=== PATIENT | female | born 1935 | race Caucasian/White ===

== ENCOUNTER → 2017-01-23 | Outpatient (CLI) | payer MEDICARE, OTHER ==
[~2017-01-23] MED LIST: ATENOLOL25 MG PO; CITRACAL + D 311 TAB PO; CITRUCEL PACKET1 PKT PO; CLOBETASOL0.05% TP; COLACE 100100 MG/CAP PO; COLACE100 MG PO; DOXYCYCLINE 50M50 MG PO; DUO-KAPS1 CAP PO; DYAZIDE 25 MG-31 CAP PO; ELAVIL10 MG PO; ELAVIL25 MG PO; FLEXERIL 1010 MG/TAB PO; FLEXERIL10 MG PO; FOLIC ACID PO; FOSAMAX 70MG TA70 MG PO; FOSAMAX70 MG PO; HYDROXYCHLOROQ200 MG PO; HYDROXYCHLOROQUINE PO; HYOMAX-SR0.375 MG PO; LEVBID0.375 MG PO; LISINOPRIL10 MG PO; LYRICA150 MG PO; METHOTREXA2.5 MG/TAB PO; METHOTREXATE2.5 M1 PO; METHOTREXATE2.5 MG PO; MULTIPLE VITAMI1 TAB PO; MVI; NASONEX SPRAY; NASONEX0.05 MG/AC NS; POTASSIUM CH2 MEQ/ML PO; PREMARIN .3MG0.3 MG VG; PREMARIN 0.60.625 M1 PO; PREMARIN VAG42.5 GM VG; PRILOSEC 20MG20 MG PO; SENORMIN50 MG PO; SYNTHROID0.05 MG/TA PO; SYNTHROID0.075 MG PO; TRIAMTERENE/HCT1 TAB PO; ULTRAM 50MG TAB50 MG PO; ULTRAM50 MG PO; VITAMIN D1000 IU PO; [UNRECOGNIZED DRUG - OTHER]; folic acid PO
== END ==
LOC: MC.RAD 08:27
DX: Z12.31 Encounter for screening mammogram for malignant neoplasm of breast (principal)

== ENCOUNTER 2017-10-07 11:00 | Outpatient (RCR) | payer MEDICARE, OTHER | END 2017-10-14 12:40 | disposition home or self-care (01) | LOC: MKS.ESL.PT 11:00 | DX: M79.671 Pain in right foot (principal) | CPT/HCPCS: G8978-GP; G8979-GP; G8980-GP ==

== ENCOUNTER → 2018-02-18 | Outpatient (CLI) | payer MEDICARE, OTHER | LOC: MC.RAD 10:34 | DX: Z12.31 Encounter for screening mammogram for malignant neoplasm of breast (principal) ==

== ENCOUNTER 2018-06-11 12:52 | Outpatient (RCR) | payer MEDICARE, OTHER | END 2018-09-09 | disposition home or self-care (01) | LOC: MKS.ESL.PT | DX: R42 Dizziness and giddiness (principal) ==

== ENCOUNTER → 2019-02-27 | Outpatient (CLI) | payer MEDICARE, OTHER | LOC: MC.RAD 11:22 | DX: Z12.31 Encounter for screening mammogram for malignant neoplasm of breast (principal) ==

== ENCOUNTER → 2020-02-29 | Outpatient (CLI) | payer MEDICARE, OTHER | LOC: MC.RAD 11:30 | DX: Z12.31 Encounter for screening mammogram for malignant neoplasm of breast (principal) ==

== ENCOUNTER 2020-11-23 07:24 | Day surgery (SDC) | payer MEDICARE, OTHER ==
[2020-11-23] VITALS (340 sets, daily range): BP systolic 105–149; BP diastolic 55–90; PULSE 62–69; TEMP 98.1–98.7; O2SAT 76–100
[~2020-11-23] VITALS: Ht 162.6 cm; Wt 88.0 kg
[2020-11-23 08:26] LABS: HEMATOCRIT 38.1 % (37.0-47.0); HEMOGLOBIN 12.3 g/dl (12.5-16.0); MEAN CELL VOLUME 89 fl (80.0-100.0); MEAN CORPUSCULAR HEMOGLOBIN 29 pg (27.0-31.0); MEAN CORPUSCULAR HGB CONC 32 g/dl (33.0-37.0); MEAN PLATELET VOLUME 9.4 fl (7.4-10.4); PLATELET COUNT 230 K/mm3 (130-400); REDCELL DISTRIBUTION WIDTH-CV 15.5 % (11.5-14.5)
[2020-11-23 08:34] LABS: PROTHROMBIN TIME 10.9 SECONDS (9.7-12.8)
[2020-11-23 08:35] LABS: ALBUMIN 4.4 gm/dL (3.5-5.0); BILIRUBIN,TOTAL 0.6 mg/dL (0.0-1.0); CHOLESTEROL RISK RATIO 1.8; CREATININE, serum 0.89 (0.52-1.25); MAGNESIUM 2.1 mg/dL (1.6-2.3); POTASSIUM 4.2 mmol/L (3.4-5.0); TOTAL PROTEIN 7.1 gm/dL (6.4-8.2)
[2020-11-23 08:36] LABS: PARTIAL THROMBOPLASTIN TIME 32.4 SECONDS (26.0-37.0)
[2020-11-23] MEDS ORDERED: SYNTHROID0.088 MG/T PO (08:45)
[2020-11-23] MEDS ORDERED: DIOVAN 160MG160 MG PO (08:46)
[2020-11-23] MEDS ORDERED: PROCARDIA XL 3030 MG PO (08:47)
[2020-11-23] MEDS ORDERED: ASPIRIN E.C. 8181 MG PO (08:47)
[2020-11-23] MEDS ORDERED: LYRICA 150MG C150 MG PO (08:48)
[2020-11-23] MEDS ORDERED: CITRACAL + D CA1 TAB (08:49)
[2020-11-23] MEDS ORDERED: VITAMIN D31000 IU PO (08:50)
[2020-11-23] MEDS ORDERED: OMEGA-31 SGL PO (08:51)
[2020-11-23] MEDS ORDERED: LASIX 20MG TABL20 MG PO (08:52)
[2020-11-23] MEDS ORDERED: PLAVIX 75MG TAB75 MG PO (08:52)
[2020-11-23] MEDS ORDERED: MULTIVITAMIN PO (08:52)
[2020-11-23] MEDS ORDERED: PRAVACHOL 40MG40 MG PO (08:53)
[2020-11-23] MEDS ORDERED: K-DUR 10 MEQ T10 MEQ PO (08:53)
[2020-11-23] MEDS ORDERED: RESTASIS MULTI5.5 ML OP (08:54)
[2020-11-23] MEDS ORDERED: ULTRAM ER100 MG (08:55)
[2020-11-23] MEDS ORDERED: HUMIRA PEN40 MG/0.4 SQ (08:55)
--- NOTE | 2020-11-23 10:45 | NUR ---
pt returned to eu 12 via bed from [employer], awake and alert. in room, call light in reach. radial band on with support, 10cc of air now reported in band. pt sips on water, Dr Luciano in later, EKG done post
--- NOTE | 2020-11-23 11:00 | NUR ---
pt has angiomax infusing from analytical lab analyst to iv site at 30.8cc/hr till bag is empty, also 1/2 ns at 100cc/hr
--- NOTE | 2020-11-23 11:30 | NUR ---
lunch ordered for pt, took snack, states has h/a, thinks from not eating.
--- NOTE | 2020-11-23 12:30 | NUR ---
pt sits up in bed eats lunch, no c/o
--- NOTE | 2020-11-23 13:00 | NUR ---
pt up to b/r to void with stand by assist, back to bed, c/o headache at a 4, tylenol 650mg po given at this time, 1cc of air released from band to start
--- NOTE | 2020-11-23 13:30 | NUR ---
1 CC OF AIR RELEASED FROM BAND, TOTAL OF 4CC OF 1344 WITH NO SIGNS OF BLEEDING
--- NOTE | 2020-11-23 14:15 | NUR ---
TR BAND RELEASED FULLY WITH NO SIGNS OF BLEEDING OR SWELLING. BANDAID ON SITE WITH COBAN SUPPORT, PT UP TO B/R TO VOID, SITS ON SIDE OF BED, NO C/O H/A STATES IS "OK"
--- NOTE | 2020-11-23 15:50 | NUR ---
PT UP TO B/R, FLUIDS D'CD. REPORT TO THOMAS SMITH IN ICU, TRANSFERRED TO #5 VIA W/C WITH , SITE SOFT, NO SWELLING TO WRIST, DOES HAVE BRUISE ABOVE SITE THAT WAS THERE UPON ARRIVAL TO ROOM, NO CHANGES
--- NOTE | 2020-11-23 16:32 | NUR ---
Patient awake and alert. Denies any pain at this time. Reports some shortness of air but this is per her usual. Right radial cath site soft with no hematoma formation. Slightly tender to touch. VS stable. Call light left within reach; will continue to monitor.
[2020-11-24] VITALS (186 sets, daily range): BP systolic 100–120; BP diastolic 50–82; PULSE 65–69; TEMP 98–98.7; O2SAT 83–100
[2020-11-24 06:39] LABS: BASO % 0.6 % (0.0-2.0); EOS # 0.1 (0.0-0.7); EOS % 2.9 % (0-4.0); GRAN # 2.7 (1.4-6.5); GRAN % 55.6 % (42.2-75.2); HEMATOCRIT 37.9 % (37.0-47.0); LYMPH # 1.3 (1.2-3.4); LYMPH % 26.9 % (20.0-51.0); MEAN CELL VOLUME 91 fl (80.0-100.0); MEAN CORPUSCULAR HEMOGLOBIN 29 pg (27.0-31.0); MEAN CORPUSCULAR HGB CONC 32 g/dl (33.0-37.0); MEAN PLATELET VOLUME 9.9 fl (7.4-10.4); MONO # 0.7 (0.1-0.6); MONO % 13.8 % (1.7-9.3); PLATELET COUNT 189 K/mm3 (130-400); RED BLOOD COUNT 4.18 M/mm3 (4.10-5.30); REDCELL DISTRIBUTION WIDTH-CV 15.4 % (11.5-14.5)
[2020-11-24 06:41] LABS: CALCIUM 9.8 mg/dL (8.4-10.2); CREATININE, serum 0.87 (0.52-1.25); POTASSIUM 4.3 mmol/L (3.4-5.0)
== END 2020-11-24 11:00 | disposition home or self-care (01) ==
LOC: COL.CAR 07:24 → ICU 15:56 → COL.CAR 11-24 11:00
PROVIDERS: Internal Medicine Cardiovascular Disease
DX: I25.110 Atherosclerotic heart disease of native coronary artery with unstable angina pectoris (principal); I73.9 Peripheral vascular disease, unspecified; K21.9 Gastro-esophageal reflux disease without esophagitis; R06.02 Shortness of breath; R94.39 Abnormal result of other cardiovascular function study; I10 Essential (primary) hypertension; I65.29 Occlusion and stenosis of unspecified carotid artery; E03.9 Hypothyroidism, unspecified; K58.9 Irritable bowel syndrome, unspecified; M79.7 Fibromyalgia; M19.90 Unspecified osteoarthritis, unspecified site; M81.0 Age-related osteoporosis without current pathological fracture; M06.9 Rheumatoid arthritis, unspecified; G47.33 Obstructive sleep apnea (adult) (pediatric); Z90.710 Acquired absence of both cervix and uterus; Z79.82 Long term (current) use of aspirin; Z79.02 Long term (current) use of antithrombotics/antiplatelets; Z79.899 Other long term (current) drug therapy; Z79.890 Hormone replacement therapy; Z80.9 Family history of malignant neoplasm, unspecified; Z83.3 Family history of diabetes mellitus; Z82.3 Family history of stroke
CPT/HCPCS: OP; C1725; C1769; C1874; C1887; C1894; C9600; J0583; J1644; J2250; J3010; Q9967

== ENCOUNTER → 2021-02-15 | Outpatient (CLI) | payer MEDICARE, OTHER ==
[~2021-02-15] MED LIST changes: +ASPIRIN E.C. 8181 MG PO; +CITRACAL + D CA1 TAB; +DIOVAN 160MG160 MG PO; +HUMIRA PEN40 MG/0.4 SQ; +K-DUR 10 MEQ T10 MEQ PO; +LASIX 20MG TABL20 MG PO; +LYRICA 150MG C150 MG PO; +MULTIVITAMIN PO; +OMEGA-31 SGL PO; +PLAVIX 75MG TAB75 MG PO; +PRAVACHOL 40MG40 MG PO; +PROCARDIA XL 3030 MG PO; +RESTASIS MULTI5.5 ML OP; +SYNTHROID0.088 MG/T PO; +ULTRAM ER100 MG; +VITAMIN D31000 IU PO
== END ==
LOC: COL.RAD 07:40
DX: N26.1 Atrophy of kidney (terminal) (principal)

== ENCOUNTER 2021-03-06 14:13 | Outpatient (RCR) | payer MEDICARE, OTHER | END 2021-03-07 | disposition home or self-care (01) | LOC: COL.CR | DX: Z48.812 Encounter for surgical aftercare following surgery on the circulatory system (principal); Z95.5 Presence of coronary angioplasty implant and graft ==

== ENCOUNTER 2021-03-17 16:39 | Outpatient (RCR) | payer MEDICARE, OTHER | END 2021-03-20 08:38 | disposition home or self-care (01) | LOC: COL.CR 16:39 | DX: Z48.812 Encounter for surgical aftercare following surgery on the circulatory system (principal); Z95.5 Presence of coronary angioplasty implant and graft ==

== ENCOUNTER 2021-04-11 12:45 | Outpatient (RCR) | payer MEDICARE, OTHER | END 2021-05-05 | disposition home or self-care (01) | LOC: MKS.ESL.PT | DX: M25.512 Pain in left shoulder (principal) | CPT/HCPCS: G0283-GP ==

== ENCOUNTER 2021-06-01 16:15 | Outpatient (RCR) | payer MEDICARE, OTHER | END 2021-06-05 | disposition home or self-care (01) | LOC: MKS.ESL.PT | DX: M25.521 Pain in right elbow (principal) ==

== ENCOUNTER 2021-07-18 15:15 | Outpatient (RCR) | payer MEDICARE, OTHER | END 2021-08-03 | disposition home or self-care (01) | LOC: MKS.ESL.OT | DX: G56.21 Lesion of ulnar nerve, right upper limb (principal) ==

== ENCOUNTER → 2021-09-01 | Outpatient (CLI) | payer MEDICARE, OTHER | LOC: COL.PUL 10:35 | DX: R06.02 Shortness of breath (principal); M06.09 Rheumatoid arthritis without rheumatoid factor, multiple sites ==

== ENCOUNTER 2022-03-13 07:30 | Day surgery (SDC) | payer MEDICARE, OTHER ==
[2008-04-20 09:13] VITALS: BP 126/74
[~2022-03-13] VITALS: Ht 160 cm; Wt 80.7 kg
[~2022-03-13 07:30] MED LIST changes: -HYDROXYCHLOROQ200 MG PO; +PLAQUENIL 200M200 MG PO; -SENORMIN50 MG PO; +TENORMIN 5050 MG/TAB PO
[2022-03-13 07:56] VITALS: BP 157/68; PULSE 61; TEMP 97.1
[2022-03-13] MEDS ORDERED: PRILOTC (08:06)
[2022-03-13] MEDS ORDERED: SYNTHROID0.075 MG/T PO (08:06)
[2022-03-13] MEDS ORDERED: PRAVACHOL 40MG40 MG PO (08:10)
[2022-03-13] MEDS ORDERED: RESTASIS MULTI5.5 ML OP (08:11)
[2022-03-13] MEDS ORDERED: KEVZARA200 MG/1.1 (08:11)
[2022-03-13] MEDS ORDERED: CRANBERRY FRUI425 MG PO (08:14)
[2022-03-13] MEDS ORDERED: [UNRECOGNIZED DRUG - OTHER] PO (08:19)
[2022-03-13 09:25] VITALS: BP 140/68; PULSE 64; TEMP 96.9
[2022-03-13 09:40] VITALS: BP 128/69; PULSE 64
[2022-03-13 09:55] VITALS: BP 147/67; PULSE 62
--- NOTE | 2022-03-13 10:15 | NUR ---
0925 RETURNS TO ROOM 2 PER CART. AWAKE, ALERT. AMBULATES TO RECLINER WITH STANDBY ASSIST. FEET ELEVATED. VIATL SIGNS OBTAINED. DENIES NAUSEA, ABD PAIN OR DYSPHAGIA. IN ROOM. 0942 TOLERATES PO JUICE AND MUFFIN WITHOUT NAUSEA. SWALLOWS WITHOUT DIFFICULTY. 0950 DR. GARCIA HERE TO SEE PATIENT. 0958 DISCHARGE INSTRUCTIONS REVIEWED. PATIENT AND VERBALIZE UNDERSTANDING. COPY OF INSTRUCTIONS PROVIDED IN DISCHARGE FOLDER. 1004 DRESSES SELF. 1015 DISCHARGED PER WHEELCHAIR TO VEHICLE BEING DRIVEN BY
== END 2022-03-13 10:15 | disposition home or self-care (01) ==
LOC: SDCO 07:30
DX: K29.30 Chronic superficial gastritis without bleeding (principal); K25.9 Gastric ulcer, unspecified as acute or chronic, without hemorrhage or perforation; K21.9 Gastro-esophageal reflux disease without esophagitis; K58.9 Irritable bowel syndrome, unspecified; E66.01 Morbid (severe) obesity due to excess calories; Z98.84 Bariatric surgery status
CPT/HCPCS: J2704; J7120

== ENCOUNTER → 2022-06-29 | Outpatient (CLI) | payer MEDICARE, OTHER ==
[~2022-06-29] MED LIST changes: +CRANBERRY FRUI425 MG PO; +KEVZARA200 MG/1.1; +PRILOTC; +SYNTHROID0.075 MG/T PO; +[UNRECOGNIZED DRUG - OTHER] PO
== END ==
LOC: COL.RAD 09:42
DX: M50.123 Cervical disc disorder at C6-C7 level with radiculopathy (principal); R53.2 Functional quadriplegia

== ENCOUNTER 2022-07-19 09:28 | Outpatient (RCR) | payer MEDICARE, OTHER | END 2022-08-03 | disposition home or self-care (01) | LOC: MKS.ESL.PT | DX: M19.011 Primary osteoarthritis, right shoulder (principal) ==

== ENCOUNTER 2022-08-10 16:27 | Emergency (ER) | payer MEDICARE, OTHER ==
[~2022-08-10] VITALS: Ht 160 cm; Wt 80.5 kg
[2022-08-10 16:43] VITALS: TEMP 97.5
[2022-08-10 17:40] LABS: BASO % 0.4 % (0.0-2.0); EOS # 0.1 K/mm3 (0.0-0.7); EOS % 2.1 % (0.0-4.0); GRAN % 63.2 % (42.2-75.2); HEMATOCRIT 40.4 % (37.0-47.0); HEMOGLOBIN 13.7 g/dl (12.5-16.0); LYMPH % 21.1 % (20.0-51.0); MEAN CELL VOLUME 91 fl (80.0-100.0); MEAN CORPUSCULAR HEMOGLOBIN 31 pg (27-31); MEAN CORPUSCULAR HGB CONC 34 g/dl (33.0-37.0); MEAN PLATELET VOLUME 9.9 fl (7.4-10.4); MONO # 0.6 K/mm3 (0.1-0.6); MONO % 12.6 % (1.7-9.3); PLATELET COUNT 176 K/mm3 (130-400); RED BLOOD COUNT 4.45 M/mm3 (4.10-5.30); REDCELL DISTRIBUTION WIDTH-CV 14.6 % (11.5-14.5)
[2022-08-10 17:58] LABS: ALANINE AMINOTRANSFERASE 50 U/L (0-55); ALBUMIN 4.5 gm/dL (3.4-4.8); ALKALINE PHOSPHATASE 33 U/L (40-150); ANION GAP 10 mmol/L (7-16); AST,SGOT 33 U/L (5-34); BILIRUBIN,TOTAL 0.7 mg/dL (0.2-1.2); BLOOD UREA NITROGEN 16 mg/dL (10-20); CALCIUM 10.1 mg/dL (8.4-10.2); CARBON DIOXIDE 24 mmol/L (23-31); CHLORIDE 106 mmol/L (98-107); CREATININE, serum 0.73 mg/dL (0.57-1.11); GLUCOSE 99 mg/dL (70-99); POTASSIUM 4.3 mmol/L (3.5-4.5); SODIUM 140 mmol/L (136-145); TOTAL PROTEIN 6.8 gm/dL (6.2-8.1)
[2022-08-10 18:05] LABS: TROPONIN-I < 0.010 ng/mL (0.00-0.033)
[2022-08-10 18:40] VITALS: BP 167/85; PULSE 77
== END 2022-08-10 18:45 | disposition home or self-care (01) ==
LOC: COL.ER 16:27
PROVIDERS: Physician Assistant
DX: S20.219A Contusion of unspecified front wall of thorax, initial encounter (principal); I25.10 Atherosclerotic heart disease of native coronary artery without angina pectoris; Z79.82 Long term (current) use of aspirin; Z95.5 Presence of coronary angioplasty implant and graft; W01.190A Fall on same level from slipping, tripping and stumbling with subsequent striking against furniture, initial encounter; Y92.009 Unspecified place in unspecified non-institutional (private) residence as the place of occurrence of the external cause
CPT/HCPCS: J1885; J3010; Q9967

== ENCOUNTER → 2023-01-03 | Outpatient (RCR) | payer MEDICARE, OTHER | END | disposition home or self-care (01) | LOC: MKS.ESL.PT | DX: M19.011 Primary osteoarthritis, right shoulder (principal); Z96.611 Presence of right artificial shoulder joint ==

== ENCOUNTER 2023-01-31 10:00 | Outpatient (RCR) | payer MEDICARE, OTHER | END 2023-02-02 | disposition home or self-care (01) | LOC: MKS.ESL.PT | DX: M19.011 Primary osteoarthritis, right shoulder (principal); Z96.611 Presence of right artificial shoulder joint ==

== ENCOUNTER 2023-04-09 14:30 | Outpatient (RCR) | payer MEDICARE, OTHER ==
[~2023-04-09 14:30] MED LIST changes: -DIOVAN 160MG160 MG PO; +DIOVAN 80MG80 MG PO; -KEVZARA200 MG/1.1; +KEVZARA200 MG/1.1 INJ
[2023-04-15] MEDS ORDERED: LOVAZA1 GM PO (16:06)
[2023-04-15] MEDS ORDERED: PREDNISONE 5MG5 MG PO (16:06)
[2023-04-15] MEDS ORDERED: THERA-D 20002000 IU PO (16:08)
[2023-04-17] MEDS ORDERED: ASPI325T6 PO (08:19)
[2023-04-17] MEDS ORDERED: TYLENOL 500MG500 MG PO (08:20)
[2023-04-17] MEDS ORDERED: PROTONIX 40MG T40 MG PO (08:23)
[2023-04-17] MEDS ORDERED: ROXICODONE 55 MG/TAB PO (08:26)
[2023-05-10] MEDS ORDERED: COLACE 100100 MG/CAP PO (09:16)
[2023-05-10] MEDS ORDERED: PRILOSEC 20MG20 MG PO (09:17)
[2023-05-10] MEDS ORDERED: URITRAX47 GM PO (09:23)
[2023-05-10] MEDS ORDERED: CEPHALEXIN500 M1 PO (09:25)
[2023-05-10] MEDS ORDERED: OMEGA-3 FISH1000 MG PO (09:27)
[2023-05-10] MEDS ORDERED: RESTASIS MULTI5.5 ML OP (09:28)
[2023-05-10] MEDS ORDERED: KEVZARA200 MG/1.1 (09:29)
[2023-05-13] MEDS ORDERED: ROCEPHIN 2GM VIAL21 IJ (11:36)
== END 2023-05-05 | disposition home or self-care (01) ==
LOC: MKS.ESL.PT
DX: M19.011 Primary osteoarthritis, right shoulder (principal); Z96.611 Presence of right artificial shoulder joint

== ENCOUNTER 2023-04-12 14:15 | Inpatient (IN) | payer MEDICARE, OTHER ==
[~2023-04-12] VITALS: Ht 160 cm; Wt 81.8 kg
[2023-04-12 15:05] LABS: BASO % 0.5 % (0.0-2.0); EOS # 0.2 K/mm3 (0.0-0.7); GRAN # 2.3 K/mm3 (1.4-6.5); GRAN % 60.2 % (42.2-75.2); HEMATOCRIT 37.8 % (37.0-47.0); HEMOGLOBIN 12.6 g/dl (12.5-16.0); LYMPH # 0.9 K/mm3 (1.2-3.4); LYMPH % 23.1 % (20.0-51.0); MEAN CELL VOLUME 95 fl (80.0-100.0); MEAN CORPUSCULAR HEMOGLOBIN 32 pg (27-31); MEAN CORPUSCULAR HGB CONC 33 g/dl (33.0-37.0); MEAN PLATELET VOLUME 10.5 fl (7.4-10.4); MONO # 0.4 K/mm3 (0.1-0.6); MONO % 11.7 % (1.7-9.3); PLATELET COUNT 159 K/mm3 (130-400)
[2023-04-12 15:44] LABS: ALBUMIN 4.3 gm/dL (3.4-4.8); BILIRUBIN,TOTAL 0.8 mg/dL (0.2-1.2); CALCIUM 9.9 mg/dL (8.4-10.2); CREATININE, serum 0.82 mg/dL (0.57-1.11); POTASSIUM 3.9 mmol/L (3.5-4.5); TOTAL PROTEIN 6.4 gm/dL (6.2-8.1)
[2023-04-12 17:00] VITALS: BP_SYST 133
--- NOTE | 2023-04-12 17:20 | NUR ---
pt admitted to room from ER. transferred pt to bed without difficulty. pt has traction on from EMS. gómez to dd w clear yellow urine output. vss. INT to left ac. med rec complete. pt on 2L nasal cannula. call light in reach. no needs at this time.
[2023-04-12 18:55] LABS: INR 1.1 (0.8-3.0); PROTHROMBIN TIME 12.2 SECONDS (9.7-12.8)
[2023-04-12 19:00] VITALS: BP_SYST 145
--- NOTE | 2023-04-12 19:00 | NUR ---
BEDSIDE SHIFT REPORT AND SHIFT ASSESSMENT COMPLETED. SEE MAR FOR MS GIVEN BY SARA SMITH. AT BEDSIDE VERY SUPPORTIVE. TRACTION FROM ER SET UP TO LLE. LT FOOT COOL TO TOUCH. RT FOOT IS WARM. POSTIVE SENSATION. CALL LIGHT IN REACH. BED ALARM SET.
[2023-04-12 19:05] VITALS: BP 143/78; PULSE 71; TEMP 97.6
[2023-04-12 20:04] VITALS: BP 145/63; PULSE 70; TEMP 97.7
[2023-04-12 21:19] LABS: COLLECTION METHOD CLEAN CATCH
[2023-04-12 21:55] LABS: PH 5.5 (5.0-8.5); URINE APPEARANCE Clear (CLEAR/HAZY); URINE BLOOD Negative (NEGATIVE); URINE COLOR Yellow (YELLOW); URINE GLUCOSE Negative (NEGATIVE); URINE KETONE Negative (NEGATIVE); URINE NITRATE Negative (NEGATIVE); URINE PROTEIN(semi-quant) Negative (NEGATIVE); URINE UROBILINOGEN 0.2 E.U/dL (0.2-1.0)
[2023-04-12 22:06] LABS: SQUAMOUS EPITHELIAL 0-2 /hpf (0-10); URINE RBC None Seen /hpf (0-2)
[2023-04-12 22:07] LABS: MUCOUS Present (NOT PRESENT); URINE BACTERIA Moderate /hpf (NONE SEEN)
[2023-04-12 23:25] VITALS: BP 145/59; PULSE 74; TEMP 97.6
[2023-04-13] VITALS (16 sets, daily range): BP systolic 92–145; BP diastolic 43–88; PULSE 52–86; TEMP 97–98.9
--- NOTE | 2023-04-13 07:00 | NUR ---
PT RESTING IN BED WITH 10/10 PAIN IN LEFT LOWER EXTREMITY AT THIS TIME. BILATERAL EXTREMITIES WARM TO TOUCH, PULSES +2, NO EDEMA, AND PT ABLE TO MOVE TOES. PT A/O X4 WITH TRACTION TO L LEG. PT REPAINS NPO AT THIS TIME. WILL CONTINUE TO MONITOR.
[2023-04-13 07:06] LABS: BASO % 0.5 % (0.0-2.0); EOS # 0.2 K/mm3 (0.0-0.7); EOS % 4.5 % (0.0-4.0); GRAN # 2.3 K/mm3 (1.4-6.5); GRAN % 54.3 % (42.2-75.2); LYMPH # 1.2 K/mm3 (1.2-3.4); LYMPH % 28.4 % (20.0-51.0); MEAN CELL VOLUME 95 fl (80.0-100.0); MEAN CORPUSCULAR HGB CONC 33 g/dl (33.0-37.0); MEAN PLATELET VOLUME 10.4 fl (7.4-10.4); MONO # 0.5 K/mm3 (0.1-0.6); MONO % 12.1 % (1.7-9.3); PLATELET COUNT 143 K/mm3 (130-400); RED BLOOD COUNT 3.09 M/mm3 (4.10-5.30); REDCELL DISTRIBUTION WIDTH-CV 14.2 % (11.5-14.5)
[2023-04-13 07:11] LABS: HEMATOCRIT 29.3 % (37.0-47.0); HEMOGLOBIN 9.6 g/dl (12.5-16.0); MEAN CORPUSCULAR HEMOGLOBIN 31 pg (27-31)
--- NOTE | 2023-04-13 07:14 | NUR ---
DELTA CHECK CALLED BY LAB. HGB DROP FROM 12.6 TO 9.6. SURGERY NOTIFIED. NO ORDERS AT THIS TIME. PT TAKEN OFF FLOOR FOR SURGERY AT THIS TIME.
[2023-04-13 07:38] LABS: ALBUMIN 3.5 gm/dL (3.4-4.8); BILIRUBIN,TOTAL 0.5 mg/dL (0.2-1.2); CALCIUM 8.4 mg/dL (8.4-10.2); CREATININE, serum 0.65 mg/dL (0.57-1.11); MAGNESIUM 1.6 mg/dL (1.6-2.6); POTASSIUM 3.7 mmol/L (3.5-4.5); TOTAL PROTEIN 5.2 gm/dL (6.2-8.1)
--- NOTE | 2023-04-13 10:26 | NUR ---
Data: Patient's Aidan accepted Chiropractor Sole Practitioner visit offered during Chiropractor Sole Practitioner rounds. Patient is at surgery. Aidan is waiting. 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 Assessment: Aidan is waiting for 's surgery to be completed. He is concerned, but also hopeful. He brought things (i.e. crossword puzzled and books) to help pass the time. Plan of Care: Life/career review with Aidan. Prayer for surgery and for recovery.
--- NOTE | 2023-04-13 10:45 | NUR ---
PT UP TO ROOM THIS TIME. REPORT RECEIVED FROM PACU NURSE. PT A/O X4 WITH PAIN 0/10. BLE WARM TO TOUCH, PULSES +2, NO EDEMA, CAP REFILL LESS THAN 2. PT TOLERATING ICE CHIPS WELL AND REMAINS ON 2L O2. FAMILY AT BEDSIDE. WILL CONTINUE TO MONITOR.
--- NOTE | 2023-04-13 19:54 | NUR ---
PT RESTING IN BED. LT HIP APIN STILL ELEVATED TO LEVEL9. SEE MAR FOR ADONIS GIVEN. AT BEDSIDE. VERY SUPPORTIVE. CALL LIGHT IN REACH. BED ALARM SET.
[2023-04-14] VITALS (18 sets, daily range): BP systolic 81–148; BP diastolic 44–85; PULSE 66–90; TEMP 97.4–98.2
[2023-04-14 07:17] LABS: MEAN CELL VOLUME 93 fl (80.0-100.0); MEAN CORPUSCULAR HGB CONC 34 g/dl (33.0-37.0); MEAN PLATELET VOLUME 10.3 fl (7.4-10.4); PLATELET COUNT 128 K/mm3 (130-400); RED BLOOD COUNT 2.47 M/mm3 (4.10-5.30); REDCELL DISTRIBUTION WIDTH-CV 14.3 % (11.5-14.5)
[2023-04-14 07:21] LABS: HEMATOCRIT 22.9 % (37.0-47.0); HEMOGLOBIN 7.8 g/dl (12.5-16.0); MEAN CORPUSCULAR HEMOGLOBIN 32 pg (27-31)
[2023-04-14 07:42] LABS: CALCIUM 7.7 mg/dL (8.4-10.2); CREATININE, serum 0.65 mg/dL (0.57-1.11); MAGNESIUM 1.9 mg/dL (1.6-2.6)
--- NOTE | 2023-04-14 10:20 | NUR ---
PT RESTING IN BED WITH PAIN 6/10 AT THIS TIME. THERPAY ASSISTED PT TO CHAIR WITH WALKER, IMPAIRED GAIT. BLE +1, PULSES +2. DRESSINGS CLEAN, DRY, AND INTACT. WILL CONTINUE TO MONITOR.
--- NOTE | 2023-04-14 11:15 | NUR ---
DRESSING TO UPPER LEFT LEG CHANGED AT THIS TIME. MODERATE AMOUNT OF PINK DRAINAGE OF BANDAGE. 4X4 AND TEGADERM APPLIED.
--- NOTE | 2023-04-14 13:26 | NUR ---
SW met with patient to complete intake, patient reports that she lives in [place] with spouse Aidan Velázquez [phone]. Patient reports that she is independent with ADL's; does utilize DME's: CPAP, cane and bathroom rails are installed to support patient. Patient shared that her PCP is Dr Samaniego and pharmacy of choice is [facility] and also uses [facility] for senior living medications. Patient does have DPOA on file. Patient is excepting to discharge back to her residence once care completed, pending any further medical recommendations.
--- NOTE | 2023-04-14 19:50 | NUR ---
ASSISTED PT FROM CHAIR TO BED WITH 2 ASSIST/GAIT BELT/WALKER. DOES WELL. HAS IVF TO LAC INFUSING WITHOUT PROBLEM. HAS DRSG'S TO LT HIP WITH OLD DRAINAGE NOTED. PEARSON TO BSD WITH YELLOW URINE. REPORTS DECREASED APPETITE, DRINKING OK. IS ALERT AND ORIENTED X4.
--- NOTE | 2023-04-14 20:30 | NUR ---
MEDICATED WITH HS MEDS INCLUDING OXYCODONE 5MG PO FOR PAIN.
[2023-04-14 20:36] LABS: HEMATOCRIT 26.5 % (37.0-47.0); HEMOGLOBIN 9.4 g/dl (12.5-16.0)
[2023-04-15] VITALS (12 sets, daily range): BP systolic 115–148; BP diastolic 58–82; PULSE 73–91; TEMP 98–98.7
--- NOTE | 2023-04-15 05:45 | NUR ---
PT LT HIP DRSG'S WITH SOAKED WITH BLOODY DRAINAGE, NEW 4X4'S AND TEGADERMS APPLIED. REPOSITIONED TO RT SIDE, ICE PACK ON.
[2023-04-15 06:37] LABS: BASO % 0.4 % (0.0-2.0); EOS # 0.3 K/mm3 (0.0-0.7); EOS % 6.1 % (0.0-4.0); GRAN # 3.2 K/mm3 (1.4-6.5); GRAN % 63.7 % (42.2-75.2); LYMPH # 0.7 K/mm3 (1.2-3.4); LYMPH % 13.2 % (20.0-51.0); MEAN CELL VOLUME 93 fl (80.0-100.0); MEAN CORPUSCULAR HGB CONC 34 g/dl (33.0-37.0); MEAN PLATELET VOLUME 10.2 fl (7.4-10.4); MONO # 0.8 K/mm3 (0.1-0.6); PLATELET COUNT 125 K/mm3 (130-400); RED BLOOD COUNT 2.67 M/mm3 (4.10-5.30); REDCELL DISTRIBUTION WIDTH-CV 14.6 % (11.5-14.5)
[2023-04-15 06:41] LABS: HEMATOCRIT 24.7 % (37.0-47.0); HEMOGLOBIN 8.3 g/dl (12.5-16.0); MEAN CORPUSCULAR HEMOGLOBIN 31 pg (27-31)
[2023-04-15 06:51] LABS: CALCIUM 8.2 mg/dL (8.4-10.2); CREATININE, serum 0.65 mg/dL (0.57-1.11); MAGNESIUM 1.7 mg/dL (1.6-2.6); POTASSIUM 4.2 mmol/L (3.5-4.5)
--- NOTE | 2023-04-15 09:14 | NUR ---
PT RESTING IN BED WITH PAIN 2/10 AT THIS TIME. EDEMA IN LEFT LEG +1, CAP REFIL LESS THAN 2, FULL SENSATION. PT AMBULATES TO CHAIR WITH 1 ASSIST AND WALKER. DRESSING TO LEFT UPPER LEG SOILED WITH PINK DRAINAGE, DRESSING CHANGED. PEARSON REMOVED AT THIS TIME PER ORDERS. WILL CONTINUE TO MONITOR.
--- NOTE | 2023-04-15 09:20 | NUR ---
Initial visit; Patient thanked Bed Manager for looking in on her and offering Gods blessings and keeping her in Bed Manager's prayers.
--- NOTE | 2023-04-15 11:46 | NUR ---
Lotus Notes Administrator met with Patient and to discuss discharge planning. Lotus Notes Administrator briefed recommendation of SNF for discharge. Patient states that she lives at [facility] and wants to discharge to [facility]. PEDRO provided Medicaregov list of servicing providers for aditional options. PEDRO contacted Tejal with [facility] who reports potential bed availability tomorrow and requests referral. PEDRO welsh assisted this SW and sent referral to [facility].
[2023-04-15 13:57] LABS: HEMOGLOBIN 9.1 g/dl (12.5-16.0)
--- NOTE | 2023-04-15 14:57 | NUR ---
[facility] was contacted by Tejal Moncada who reports to accept Patient for admission tomorrow, 04-16-23.
[2023-04-15] MEDS ORDERED: PREDNISONE 5MG5 MG PO (16:06)
[2023-04-15] MEDS ORDERED: LOVAZA1 GM PO (16:06)
[2023-04-15] MEDS ORDERED: THERA-D 20002000 IU PO (16:08)
--- NOTE | 2023-04-15 19:00 | NUR ---
PT IN BED, SPOUSE AT BEDSIDE. DENIES PAIN AT THIS TIME. HAS DRSG TO LT HIP WITH MICROFOAM TAPE SECURING. DRSG'S TO LT KNEE D/I.
--- NOTE | 2023-04-15 20:30 | NUR ---
PT UP IN CHAIR AT BEDSIDE. IS ABLE TO TRANSFER WITH ONE ASSIST AND WALKER, GAIT STEADY. HAS DRY DRSG'S TO LT HIP/KNEE. HAS ABRASION/SCRATCHES TO LT BUTTOCK. HAS BRUISING TO GROIN. PT IS ALERT AND ORIENTED X4. DENIES NEED FOR OXYCODONE TONIGHT, TAKES SCHEDULED HS MEDS WITHOUT PROBLEM. INT TO LFA. WEARING 1L/NC OF OXYGEN, TYPICALLY WEAR CPAP AT HOME.
[2023-04-16] VITALS (17 sets, daily range): BP systolic 92–151; BP diastolic 44–81; PULSE 76–91; TEMP 97.8–98.9
--- NOTE | 2023-04-16 05:00 | NUR ---
PT UP TO BATHROOM, HAS BM, BACK TO BED. SCHEDULED AM MEDS GIVEN.
[2023-04-16 07:58] LABS: MEAN CELL VOLUME 93 fl (80.0-100.0); MEAN CORPUSCULAR HGB CONC 34 g/dl (33.0-37.0); MEAN PLATELET VOLUME 10.4 fl (7.4-10.4); PLATELET COUNT 134 K/mm3 (130-400); RED BLOOD COUNT 2.45 M/mm3 (4.10-5.30); REDCELL DISTRIBUTION WIDTH-CV 14.4 % (11.5-14.5)
[2023-04-16 08:17] LABS: HEMATOCRIT 22.7 % (37.0-47.0); HEMOGLOBIN 7.7 g/dl (12.5-16.0); MEAN CORPUSCULAR HEMOGLOBIN 31 pg (27-31)
[2023-04-16 08:19] LABS: CALCIUM 8.5 mg/dL (8.4-10.2); CREATININE, serum 0.64 mg/dL (0.57-1.11)
--- NOTE | 2023-04-16 08:54 | NUR ---
PT UP TO RECLINER FOR BREAKFAST. AT BEDSIDE. PT TO DISCHARGE LATER TODAY TO [facility] POSSIB[facility]. PT IS A/O X4, TOOK AM MEDS WHOLE, DRESSINGS TO LEFT LEG CDI WITH GAUZE AND TEGADERM OVER INCISIONS.
--- NOTE | 2023-04-16 09:04 | NUR ---
Quality Assurance Qa Lab Technician collaborated with Treatment Team to assess Patient for discharge readiness. Patient is assessed to need continued treatment and is anticipated to discharge tomorrow if stable after today's transfusion. Patient is accepted for [facility]. SW sent updates to Adarsh with [facility] and briefed need for continued stay.
[2023-04-16 11:10] LABS: ANISOCYTOSIS 1+; BAND 9 % (0-10); EOSINOPHIL 7 % (0-4); LYMPHOCYTE 15 % (20.0-51.0); NEUTROPHILS 61 % (42.0-75.2); NUCLEATED RED BLOOD CELL 1 (0-6); PLATELET ESTIMATE NORMAL (NORMAL)
[2023-04-16 16:27] LABS: HEMATOCRIT 27.6 % (37.0-47.0); HEMOGLOBIN 9.4 g/dl (12.5-16.0)
--- NOTE | 2023-04-16 19:00 | NUR ---
sitting up in chair eating supper, bedside shift report received from SARAH Robertson
--- NOTE | 2023-04-16 20:20 | NUR ---
assisted back to bed by CARE TECH, c/o pain to left leg 11/12 and medicated with roxicodone 5mg and scheduled tylenol, full assessment completed see interventions for further info, has bruising to left upper thigh and hip area, and swelling to left lower extremity, has kennedi wrap dressing to left kne and occlusive dressing to left hip, SCDs placed bilaterally, is ready for sleep, denies further needs
--- NOTE | 2023-04-16 21:27 | NUR ---
appears toa be sleeping, in bed with eyes closed, resp quiet and easy
--- NOTE | 2023-04-16 23:36 | NUR ---
continues to appear to sleep
[2023-04-17 00:14] VITALS: BP 143/65; PULSE 79; TEMP 97.6
--- NOTE | 2023-04-17 00:15 | NUR ---
assisted up to bathroom with 1 assist, ambulates with slow steady gait, then back to bed
[2023-04-17 01:00] VITALS: BP_SYST 143
--- NOTE | 2023-04-17 02:02 | NUR ---
appears to be sleeping, lights off, eyes closed, resp quiet and easy
--- NOTE | 2023-04-17 03:44 | NUR ---
appears to be sleeping, resp quiet and easy
--- NOTE | 2023-04-17 04:00 | NUR ---
awake for vital signs, medicated with scheduled tylenol, states pain is good at this time, denies needs
[2023-04-17 04:05] VITALS: BP 129/79; PULSE 71; TEMP 97.5
[2023-04-17 04:12] VITALS: BP_SYST 129
[2023-04-17 06:43] LABS: HEMATOCRIT 25.5 % (37.0-47.0); HEMOGLOBIN 8.5 g/dl (12.5-16.0)
[2023-04-17 06:51] LABS: CALCIUM 8.6 mg/dL (8.4-10.2); CREATININE, serum 0.66 mg/dL (0.57-1.11); POTASSIUM 3.9 mmol/L (3.5-4.5)
--- NOTE | 2023-04-17 07:01 | NUR ---
bedside shift report given to SARAH Sanchez
[2023-04-17 07:20] VITALS: BP 111/71; PULSE 65; TEMP 97.9
[2023-04-17] MEDS ORDERED: ASPI325T6 PO (08:19)
[2023-04-17] MEDS ORDERED: TYLENOL 500MG500 MG PO (08:20)
[2023-04-17] MEDS ORDERED: PROTONIX 40MG T40 MG PO (08:23)
[2023-04-17] MEDS ORDERED: ROXICODONE 55 MG/TAB PO (08:26)
--- NOTE | 2023-04-17 08:51 | NUR ---
pt a&ox4 resting in bed, at bedside. meds are given and assessment is complete. vss and tele in place. scds and teds to ble. left leg incisions are cdi. pt denies pain. INT discontinued for pt to shower before discharging. fall precautions in place. pt denies needs at this time. call light in reach.
[2023-04-17 09:22] VITALS: BP_SYST 111
--- NOTE | 2023-04-17 11:14 | NUR ---
report called to nurse at [facility], all questions answered.
--- NOTE | 2023-04-17 12:22 | NUR ---
Clay Molder faxed clinical updates and discharge orders to Kennedy at [facility], who confirmed they can accept today. Transport time set for 1100. SW met with patient and her spouse to provide update and discharge time. SW presented IM form to patient who then verbalized understanding and provided signature. SW placed form in chart, then provided copy to patient. Discharge Plan: [facility]
== END 2023-04-17 11:14 | DRG 482 ==
LOC: COL.ER 14:15 → SURG 15:46
PROVIDERS: Emergency Medicine; Orthopaedic Surgery; Physician Assistant; ADMIT Hospitalist
PROC: 2W5RXYZ Removal of Other Device on Left Lower Leg (ICD-10-PCS; 2023-04-13)
PROC: BW1CYZZ Fluoroscopy of Lower Extremity using Other Contrast (ICD-10-PCS; 2023-04-13)
PROC: 0QS906Z Reposition Left Femoral Shaft with Intramedullary Internal Fixation Device, Open Approach (ICD-10-PCS; principal; 2023-04-13 08:00)
PROC: 30233N1 Transfusion of Nonautologous Red Blood Cells into Peripheral Vein, Percutaneous Approach (ICD-10-PCS; 2023-04-16)
DX: S72.302A Unspecified fracture of shaft of left femur, initial encounter for closed fracture (principal); M81.0 Age-related osteoporosis without current pathological fracture; I08.1 Rheumatic disorders of both mitral and tricuspid valves; D72.819 Decreased white blood cell count, unspecified; M06.9 Rheumatoid arthritis, unspecified; E83.42 Hypomagnesemia; I73.9 Peripheral vascular disease, unspecified; I10 Essential (primary) hypertension; E03.9 Hypothyroidism, unspecified; D64.9 Anemia, unspecified; I25.10 Atherosclerotic heart disease of native coronary artery without angina pectoris; G47.33 Obstructive sleep apnea (adult) (pediatric); M19.90 Unspecified osteoarthritis, unspecified site; E78.5 Hyperlipidemia, unspecified; K21.9 Gastro-esophageal reflux disease without esophagitis; G62.9 Polyneuropathy, unspecified; W18.30XA Fall on same level, unspecified, initial encounter; Y92.009 Unspecified place in unspecified non-institutional (private) residence as the place of occurrence of the external cause; Z79.82 Long term (current) use of aspirin; Z79.891 Long term (current) use of opiate analgesic; Z79.890 Hormone replacement therapy; Z95.5 Presence of coronary angioplasty implant and graft; Z95.820 Peripheral vascular angioplasty status with implants and grafts; Z90.710 Acquired absence of both cervix and uterus; Z88.2 Allergy status to sulfonamides; Z88.5 Allergy status to narcotic agent; Z88.8 Allergy status to other drugs, medicaments and biological substances
CPT/HCPCS: A4314; A9284; C1713; J0665; J0690; J1170; J2250; J2270; J2371; J2405; J2704; J3010; J3475; J7030; J7120; J7512; P9016

== ENCOUNTER 2023-05-31 14:07 | Emergency (ER) | payer MEDICARE, OTHER ==
[~2023-05-31] VITALS: Ht 160 cm; Wt 80.0 kg
[~2023-05-31 14:07] MED LIST changes: +ASPI325T6 PO; +CEPHALEXIN500 M1 PO; +KEVZARA200 MG/1.1; +LOVAZA1 GM PO; +OMEGA-3 FISH1000 MG PO; +PREDNISONE 5MG5 MG PO; +PROTONIX 40MG T40 MG PO; +ROCEPHIN 2GM VIAL21 IJ; +ROXICODONE 55 MG/TAB PO; +THERA-D 20002000 IU PO; +TYLENOL 500MG500 MG PO; +URITRAX47 GM PO
[2023-05-31 14:33] VITALS: TEMP 98.1
[2023-05-31] MEDS ORDERED: ROXICODONE 55 MG/TAB PO (16:25)
[2023-05-31 17:00] VITALS: BP 162/78; PULSE 76
== END 2023-05-31 17:00 | disposition home or self-care (01) ==
LOC: COL.ER 14:07
DX: M25.511 Pain in right shoulder (principal); Z96.611 Presence of right artificial shoulder joint; Z88.5 Allergy status to narcotic agent

== ENCOUNTER 2023-12-03 13:45 | Outpatient (RCR) | payer MEDICARE, OTHER | END 2023-12-04 | disposition home or self-care (01) | LOC: MKS.ESL.PT | DX: M25.552 Pain in left hip (principal); Z98.890 Other specified postprocedural states ==

== ENCOUNTER 2024-01-27 09:00 | Outpatient (RCR) | payer MEDICARE, OTHER | END 2024-02-03 | disposition home or self-care (01) | LOC: MKS.ESL.PT | DX: M25.552 Pain in left hip (principal) ==